=== PATIENT | male | born 1940 | race Caucasian/White ===

== ENCOUNTER → 2020-06-11 | Outpatient (CLI) | payer MEDICARE ==
[~2020-06-11] MED LIST: AMLODIPINE BESYL5 MG PO; ASPIRIN 325MG325 MG PO; ASPIRIN EC81 MG PO; COREG 3.125M3.125 MG PO; COZAAR100 MG PO; GLUCOPHAGE500 MG PO; HYGROTON TAB 2525 MG PO; LEVAQUIN750 MG PO; THERAGRAN M TAB1 EA PO
== END ==
LOC: LAB 07:58
PROVIDERS: Nurse Practitioner Family
DX: E11.9 Type 2 diabetes mellitus without complications (principal)
CPT/HCPCS: 36415; 80053

== ENCOUNTER → 2020-06-21 | Outpatient (CLI) | payer MEDICARE ==
[2020-06-21 09:05] LABS: BUN/CREATININE RATIO 25 (0-10)
== END ==
LOC: LAB 08:27
PROVIDERS: Nurse Practitioner Family
DX: E87.6 Hypokalemia (principal); E87.1 Hypo-osmolality and hyponatremia
CPT/HCPCS: 36415; 80048

== ENCOUNTER → 2021-01-13 | Outpatient (CLI) | payer MEDICARE ==
[2021-01-13 09:11] LABS: HEMOGLOBIN 12.9 gm/dl (14.0-17.5); RED BLOOD COUNT 4.47 M/UL (4.20-5.50)
[2021-01-14 11:13] LABS: CREATININE, URINE 47.6 mg/dL (Not Estab.)
== END ==
LOC: LAB 06:21
PROVIDERS: Nurse Practitioner Family
DX: Z12.5 Encounter for screening for malignant neoplasm of prostate (principal); E11.9 Type 2 diabetes mellitus without complications
CPT/HCPCS: 36415; 80053; 80061; 82043; 82570; 83036; 84439; 84443; 85025; G0103

== ENCOUNTER → 2021-01-20 | Outpatient (CLI) | payer MEDICARE | LOC: LAB 12:41 | PROVIDERS: Nurse Practitioner Family | DX: D64.9 Anemia, unspecified (principal); E87.1 Hypo-osmolality and hyponatremia | CPT/HCPCS: 36415; 80048; 82728; 83540; 83550; 83615; 84466; 85045 ==

== ENCOUNTER → 2021-07-04 | Outpatient (CLI) | payer MEDICARE | LOC: EXRD 08:58 | DX: M50.31 Other cervical disc degeneration, high cervical region (principal) | CPT/HCPCS: 72050 ==

== ENCOUNTER 2021-11-11 13:40 | Inpatient (IN) | payer MEDICARE ==
[~2021-11-11] VITALS: Ht 175.3 cm; Wt 94.8 kg
[2021-11-11 16:25] LABS: RED BLOOD COUNT 4.44 M/UL (4.20-5.50); WHITE BLOOD COUNT 20.8 K/UL (4.5-11.0)
[2021-11-11] MEDS ORDERED: ASPIRIN EC325 MG PO (18:25)
[2021-11-11] MEDS ORDERED: ATORVASTATIN CA10 MG PO (18:26)
[2021-11-11] MEDS ORDERED: CYCLOBENZAPRINE10 MG PO (18:26)
[2021-11-11] MEDS ORDERED: CARVEDILOL3.125 MG PO (18:26)
[2021-11-11] MEDS ORDERED: CHLORTHALIDONE50 MG PO (18:26)
[2021-11-11] MEDS ORDERED: POTASSIUM CHLO10 MEQ PO (18:27)
[2021-11-12 06:22] LABS: HEMOGLOBIN 12.6 gm/dl (14.0-17.5); RED BLOOD COUNT 4.35 M/UL (4.20-5.50)
[2021-11-12 06:34] LABS: BUN/CREATININE RATIO 24 (0-10)
[2021-11-12] MEDS ORDERED: FLOMAX 0.4 MG0.4 MG PO (09:49)
[2021-11-12] MEDS ORDERED: LEVOFLOXACIN500 MG PO (09:50)
== END 2021-11-12 14:58 | disposition home or self-care (01) | DRG 683 ==
LOC: ER1 13:40 → MED SURG 4 17:40 → CDU 17:40 → MED SURG 4 20:07
PROVIDERS: Physician Assistant; Physician Assistant Medical; ADMIT Internal Medicine Infectious Disease
DX: N17.9 Acute kidney failure, unspecified (principal); E87.1 Hypo-osmolality and hyponatremia; N30.00 Acute cystitis without hematuria; R65.10 Systemic inflammatory response syndrome (SIRS) of non-infectious origin without acute organ dysfunction; I10 Essential (primary) hypertension; E11.9 Type 2 diabetes mellitus without complications; E78.5 Hyperlipidemia, unspecified; E87.6 Hypokalemia; E83.42 Hypomagnesemia; I48.0 Paroxysmal atrial fibrillation; I25.10 Atherosclerotic heart disease of native coronary artery without angina pectoris; E86.0 Dehydration; N40.0 Benign prostatic hyperplasia without lower urinary tract symptoms; Z98.49 Cataract extraction status, unspecified eye; Z98.890 Other specified postprocedural states; Z79.82 Long term (current) use of aspirin; Z79.899 Other long term (current) drug therapy; Z83.3 Family history of diabetes mellitus; I25.2 Old myocardial infarction; Z90.49 Acquired absence of other specified parts of digestive tract
CPT/HCPCS: 36415; 70450; 80048; 80053; 81001; 82550; 82553; 82962; 83605; 83690; 83735; 84132; 84484; 85025; 85027; 87040; 87086; 93005; 96374; 96376; 99285; J0696; J1650; J3475

== ENCOUNTER → 2021-11-14 | Outpatient (CLI) | payer MEDICARE ==
[~2021-11-14] MED LIST changes: +ASPIRIN EC325 MG PO; +ATORVASTATIN CA10 MG PO; +CARVEDILOL3.125 MG PO; +CHLORTHALIDONE50 MG PO; +CYCLOBENZAPRINE10 MG PO; +FLOMAX 0.4 MG0.4 MG PO; +LEVOFLOXACIN500 MG PO; +POTASSIUM CHLO10 MEQ PO
[2021-11-14 07:25] LABS: BUN/CREATININE RATIO 22 (0-10)
== END ==
LOC: LAB 06:31
PROVIDERS: Physician Assistant Medical
DX: N17.9 Acute kidney failure, unspecified (principal)
CPT/HCPCS: 36415; 80048

== ENCOUNTER 2021-11-24 13:47 | Inpatient (IN) | payer MEDICARE ==
[~2021-11-24] VITALS: Ht 175.3 cm; Wt 101.7 kg
[2021-11-24 14:32] LABS: HEMOGLOBIN 10.5 gm/dl (14.0-17.5); RED BLOOD COUNT 3.69 M/UL (4.20-5.50); WHITE BLOOD COUNT 11.3 K/UL (4.5-11.0)
[2021-11-24 15:06] LABS: BUN/CREATININE RATIO 20 (0-10)
[2021-11-25 01:53] LABS: HEMOGLOBIN 10.4 gm/dl (14.0-17.5); RED BLOOD COUNT 3.56 M/UL (4.20-5.50); WHITE BLOOD COUNT 11.3 K/UL (4.5-11.0)
[2021-11-25 02:29] LABS: BUN/CREATININE RATIO 23 (0-10)
[2021-11-26 03:05] LABS: HEMOGLOBIN 10.3 gm/dl (14.0-17.5); RED BLOOD COUNT 3.58 M/UL (4.20-5.50); WHITE BLOOD COUNT 13.5 K/UL (4.5-11.0)
[2021-11-26 03:44] LABS: BUN/CREATININE RATIO 20 (0-10)
[2021-11-26 14:12] LABS: HEMOGLOBIN 10.3 gm/dl (14.0-17.5); RED BLOOD COUNT 3.58 M/UL (4.20-5.50); WHITE BLOOD COUNT 14.7 K/UL (4.5-11.0)
[2021-11-27 05:22] LABS: HEMOGLOBIN 9.7 gm/dl (14.0-17.5); RED BLOOD COUNT 3.41 M/UL (4.20-5.50); WHITE BLOOD COUNT 15.7 K/UL (4.5-11.0)
[2021-11-27 05:47] LABS: BUN/CREATININE RATIO 23 (0-10)
[2021-11-28 06:55] LABS: HEMOGLOBIN 9.7 gm/dl (14.0-17.5); RED BLOOD COUNT 3.37 M/UL (4.20-5.50); WHITE BLOOD COUNT 14.3 K/UL (4.5-11.0)
[2021-11-28 07:04] LABS: BUN/CREATININE RATIO 29 (0-10)
[2021-11-29 04:56] LABS: WHITE BLOOD COUNT 11.7 K/UL (4.5-11.0)
[2021-11-29 05:15] LABS: RED BLOOD COUNT 3.85 M/UL (4.20-5.50)
[2021-11-29 05:34] LABS: BUN/CREATININE RATIO 35 (0-10)
[2021-11-30 04:55] LABS: HEMOGLOBIN 10.5 gm/dl (14.0-17.5); RED BLOOD COUNT 3.73 M/UL (4.20-5.50); WHITE BLOOD COUNT 11.7 K/UL (4.5-11.0)
[2021-11-30 05:23] LABS: BUN/CREATININE RATIO 35 (0-10)
[2021-11-30] MEDS ORDERED: LASIX40 MG PO (11:49)
[2021-11-30] MEDS ORDERED: ASPIRIN EC81 MG PO (11:49)
[2021-11-30] MEDS ORDERED: LEVOFLOXACIN500 MG PO (11:49)
[2021-11-30] MEDS ORDERED: AMLODIPINE BESYL5 MG PO (11:49)
[2021-11-30] MEDS ORDERED: K-TAB ER20 MEQ PO (11:49)
[2021-11-30] MEDS ORDERED: ELIQUIS 5 MG TAB5 MG PO (11:49)
== END 2021-11-30 13:58 | disposition home or self-care (01) | DRG 308 ==
LOC: ER1 13:47 → PROG CARE 17:25 → CDU 17:25 → PROG CARE 20:00 → M/S 11-25 22:48
PROVIDERS: Emergency Medicine; Internal Medicine; Physician Assistant; ADMIT Internal Medicine Infectious Disease
PROC: B24BZZZ Ultrasonography of Heart with Aorta (ICD-10-PCS; principal; 2021-11-25)
DX: I48.19 Other persistent atrial fibrillation (principal); I50.33 Acute on chronic diastolic (congestive) heart failure; J18.9 Pneumonia, unspecified organism; Z20.822 Contact with and (suspected) exposure to COVID-19; E87.1 Hypo-osmolality and hyponatremia; Z66 Do not resuscitate; E78.5 Hyperlipidemia, unspecified; E11.9 Type 2 diabetes mellitus without complications; N40.0 Benign prostatic hyperplasia without lower urinary tract symptoms; H91.93 Unspecified hearing loss, bilateral; H54.62 Unqualified visual loss, left eye, normal vision right eye; I48.0 Paroxysmal atrial fibrillation; E87.6 Hypokalemia; E66.01 Morbid (severe) obesity due to excess calories; E83.42 Hypomagnesemia; I11.0 Hypertensive heart disease with heart failure; D64.9 Anemia, unspecified; T50.2X5A Adverse effect of carbonic-anhydrase inhibitors, benzothiadiazides and other diuretics, initial encounter; I27.20 Pulmonary hypertension, unspecified; E66.9 Obesity, unspecified; I08.3 Combined rheumatic disorders of mitral, aortic and tricuspid valves; Z79.4 Long term (current) use of insulin; Z79.01 Long term (current) use of anticoagulants; Z79.82 Long term (current) use of aspirin; Z98.42 Cataract extraction status, left eye; Z90.49 Acquired absence of other specified parts of digestive tract; Z83.3 Family history of diabetes mellitus; Z82.49 Family history of ischemic heart disease and other diseases of the circulatory system; Z83.6 Family history of other diseases of the respiratory system; Z68.33 Body mass index [BMI] 33.0-33.9, adult
CPT/HCPCS: ECHO; 36415; 71045; 71046; 80048; 80053; 80202; 81001; 82436; 82550; 82553; 82962; 83605; 83735; 83880; 84132; 84133; 84300; 84484; 85025; 85027; 85730; 87040; 87081; 87086; 93005; 93306; 99285; G0378; J1335; J1644; J1940; J2185; J3370; J3475; J7070; P9047